=== PATIENT | female | born 1975 | race Two or more races ===

== ENCOUNTER 2018-05-15 12:41 | Inpatient (IN) | payer OTHER ==
[~2018-05-15] VITALS: Ht 157.5 cm; Wt 75.7 kg
[2018-05-15] MEDS ORDERED: CARVEDILOL25 MG PO (13:14)
[2018-05-22] MEDS ORDERED: TRAM1TAB98 PO (06:14)
[2018-05-22] MEDS ORDERED: LEVSIN/SL0.125 MG PO (06:14)
[2018-05-22] MEDS ORDERED: MAXFE CAPLET1 EACH PO (06:14)
[2018-05-22] MEDS ORDERED: IBUPROFEN400 MG PO (06:14)
== END 2018-05-22 08:31 | disposition home or self-care (01) | DRG 743 ==
LOC: RECOVERY 05-20 11:30 → O/R 05-20 19:28 → SURG 05-20 19:51
PROVIDERS: Obstetrics & Gynecology Gynecology
PROC: 0UT70ZZ Resection of Bilateral Fallopian Tubes, Open Approach (ICD-10-PCS; 2018-05-20)
PROC: 0UT90ZZ Resection of Uterus, Open Approach (ICD-10-PCS; principal; 2018-05-20 11:30)
DX: N80.0 Endometriosis of uterus (principal); I10 Essential (primary) hypertension; D64.89 Other specified anemias; R10.2 Pelvic and perineal pain

== ENCOUNTER 2024-01-15 09:15 | Inpatient (IN) | payer OTHER ==
[~2024-01-15] VITALS: Ht 157.5 cm; Wt 59.0 kg
[~2024-01-15 09:15] MED LIST: CARVEDILOL25 MG PO; IBUPROFEN400 MG PO; LEVSIN/SL0.125 MG PO; MAXFE CAPLET1 EACH PO; TRAM1TAB98 PO
[2024-01-21] MEDS ORDERED: LOSARTAN POTASS25 MG (13:36)
[2024-01-21] MEDS ORDERED: CARVEDILOL 12.5 (13:36)
[2024-01-30] MEDS ORDERED: ALPRAZOLAM1 MG (16:04)
[2024-01-30] MEDS ORDERED: BUPROPION XL150 MG (16:04)
[2024-01-30] MEDS ORDERED: ESCITALOPRAM OX20 MG (16:04)
[2024-01-30] MEDS ORDERED: CARVEDILOL12.5 M1 (16:04)
[2024-01-30] MEDS ORDERED: ZOLPIDEM TARTRAT5 MG (16:05)
[2024-01-30] MEDS ORDERED: MOUNJARO15 MG/0.5 (16:05)
[2024-01-30] MEDS ORDERED: DROSPIRENONE-E1 EAC1 (16:06)
[2024-01-30] MEDS ORDERED: CEFTRIAXONE SODIUM 2,000 MG VIAL IV NR (18:15)
[2024-01-30] MEDS ORDERED: METRONIDAZOLE/SODIUM CHLORIDE 500 MG/100 ML PIGGYBACK IV NR (18:15)
[2024-01-30] MEDS ORDERED: VISTASEAL DUAL APPICATOR 1 EACH APPL TOP ONE (18:45)
[2024-01-30] MEDS ORDERED: POVIDONE-IODINE 118 ML BOTT TOP ONE (18:45)
[2024-01-30] MEDS ORDERED: BUPIVACAINE HCL 30 ML VIAL IJ ONE (18:45)
[2024-01-30] MEDS ORDERED: THROMBIN,HU/FIBRINOGEN/CALCIUM 10 ML SYRINGE TOP ONE (18:45)
[2024-01-30] MEDS ORDERED: LIDOCAINE HCL 1%/EPINEPHRINE 20ML VIAL IJ ONE (18:45)
[2024-01-30] MEDS ORDERED: MORPHINE SULFATE 4 MG/ML CARTRIDGE IV PRN (19:30)
[2024-01-30] MEDS ORDERED: RINGERS SOLUTION,LACTATED 1,000 ML IV SCH (19:30)
[2024-01-30] MEDS ORDERED: ONDANSETRON HCL 2 MG/ML VIAL IV PRN (19:30)
[2024-01-30] MEDS ORDERED: SUGAMMADEX SODIUM 200 MG/2 ML VIAL IV NR (19:30)
[2024-01-30] MEDS ORDERED: ACETAMINOPHEN 500 MG GEL..CAP PO SCH (20:00)
[2024-01-30] MEDS ORDERED: FAMOTIDINE/PF 20 MG/2 ML VIAL IV PUSH SCH (21:00)
[2024-01-30] MEDS ORDERED: GABAPENTIN 100 MG CAPSULE PO STA (22:54)
[2024-01-30] MEDS ORDERED: CELECOXIB 200 MG CAPSULE PO STA (22:56)
[2024-01-30 23:18] LABS: HEMATOCRIT 30.7 % (36.0-45.00); HEMOGLOBIN 10.8 g/dL (12.0-15.00); MEAN CELL VOLUME 88.1 fL (80.00-100.00); MEAN CORPUSCULAR HEMOGLOBIN 31.1 pg (27.00-32.0); MEAN CORPUSCULAR HGB CONC 35.3 g/dl (32.0-36.0); PLATELET COUNT 178 K/uL (150-450); RED BLOOD COUNT 3.49 M/uL (4.00-6.00); RED CELL DISTRIBUTION WIDTH 12.8 % (11.5-14.5)
[2024-01-31] MEDS ORDERED: GABAPENTIN 300 MG CAPSULE PO SCH (01:00)
[2024-01-31 06:12] LABS: HEMATOCRIT 34.2 % (36.0-45.00); HEMOGLOBIN 11.9 g/dL (12.0-15.00); MEAN CELL VOLUME 89.7 fL (80.00-100.00); MEAN CORPUSCULAR HEMOGLOBIN 31.3 pg (27.00-32.0); MEAN CORPUSCULAR HGB CONC 34.9 g/dl (32.0-36.0); PLATELET COUNT 178 K/uL (150-450); RED BLOOD COUNT 3.82 M/uL (4.00-6.00); RED CELL DISTRIBUTION WIDTH 12.6 % (11.5-14.5)
[2024-01-31 06:54] LABS: CALCIUM 8.2 mg/dL (8.5-10.1); CREATININE SERUM 0.81 mg/dL (0.55-1.02); GFR 76.12; MAGNESIUM 1.8 mg/dL (1.8-2.4); POTASSIUM 3.45 mEq/L (3.5-5.1)
[2024-01-31] MEDS ORDERED: LACTOBACILLUS ACIDOPHILUS 1 CAP CAP PO SCH (09:00)
[2024-01-31] MEDS ORDERED: CELECOXIB 200 MG CAPSULE PO STA (10:43)
[2024-01-31] MEDS ORDERED: DIPHENHYDRAMINE HCL 50 MG/ML VIAL 1ML IM STA (11:30)
[2024-01-31] MEDS ORDERED: ENOXAPARIN SODIUM 40 MG/0.4 ML SYRINGE SUBCUTANEO SCH (17:00)
[2024-02-01] MEDS ORDERED: ENOXAPARIN SODIUM 40 MG/0.4 ML SYRINGE SUBCUTANEO SCH (09:00)
== END 2024-01-31 18:30 | disposition home or self-care (01) | DRG 743 ==
LOC: O/R 01-30 08:30 → OB/GYN 01-30 11:45
PROVIDERS: Surgery; Urology; ADMIT Obstetrics & Gynecology Gynecology; ATTEND Obstetrics & Gynecology Gynecology
PROC: 0TN74ZZ Release Left Ureter, Percutaneous Endoscopic Approach (ICD-10-PCS; 2024-01-30)
PROC: 0DNW4ZZ Release Peritoneum, Percutaneous Endoscopic Approach (ICD-10-PCS; 2024-01-30)
PROC: 0UN04ZZ Release Right Ovary, Percutaneous Endoscopic Approach (ICD-10-PCS; 2024-01-30)
PROC: 0T788DZ Dilation of Bilateral Ureters with Intraluminal Device, Via Natural or Artificial Opening Endoscopic (ICD-10-PCS; 2024-01-30)
PROC: 0UT74ZZ Resection of Bilateral Fallopian Tubes, Percutaneous Endoscopic Approach (ICD-10-PCS; principal; 2024-01-30 13:15)
PROC: 0UT24ZZ Resection of Bilateral Ovaries, Percutaneous Endoscopic Approach (ICD-10-PCS; 2024-01-30 13:15)
PROC: 0DBW4ZZ Excision of Peritoneum, Percutaneous Endoscopic Approach (ICD-10-PCS; 2024-01-30 13:15)
DX: N80.351 Endometriosis of the right pelvic sidewall, unspecified depth (principal); N80.A62 Endometriosis of left ureter, unspecified depth; K66.0 Peritoneal adhesions (postprocedural) (postinfection); Z20.822 Contact with and (suspected) exposure to COVID-19